=== PATIENT | female | born 1990 | race Caucasian/White ===

== ENCOUNTER 2021-11-16 11:45 | Emergency (ER) | payer OTHER ==
[2021-11-16 11:54] VITALS: BP 103/53
--- NOTE | 2021-11-16 13:03 | Emergency Department Report ---
ED General Adult HPI - General Chief complaint: Medical Clearance Stated complaint: 14WKS PREG NEED CHECK Source: patient Mode of arrival: Ambulatory Limitations: No Limitations - History of Present Illness Initial comments: 31-year-old female presents emergency department with concerns for her . Patient states she is about 14 weeks . She states her last menstrual period was in July. She denies any bleeding, loss of fluids or abdominal pain. She has had 1 previous . She denies history of ectopic or miscarriage. She states her previous resulted in a premature baby. - Related Data Allergies Allergy/AdvReac Type Severity Reaction Status Date / Time No Known Allergies Allergy Verified 11/16/21 11:51 ED Review of Systems ROS: Stated complaint: 14WKS PREG NEED CHECK Other details as noted in HPI Constitutional: no symptoms reported Eyes: denies: eye pain ENT: denies: throat pain Respiratory: denies: cough Cardiovascular: denies: orthopnea Endocrine: no symptoms reported Gastrointestinal: denies: abdominal pain, nausea, vomiting Genitourinary: denies: urgency, dysuria, discharge Musculoskeletal: denies: back pain, joint swelling, arthralgia Skin: denies: rash, lesions Neurological: denies: headache, weakness, paresthesias Psychiatric: denies: anxiety, depression Hematological/Lymphatic: denies: easy bleeding, easy bruising ED Physical Exam - General Limitations: No Limitations General appearance: alert, in no apparent distress - Head Head exam: Present: atraumatic, normocephalic - Eye Eye exam: Present: normal appearance - ENT ENT exam: Present: mucous membranes moist - Neck Neck exam: Present: normal inspection - Respiratory Respiratory exam: Absent: respiratory distress - Cardiovascular Cardiovascular Exam: Present: other (Well-perfused extremities) - GI/Abdominal GI/Abdominal exam: Present: soft, normal bowel sounds, other (gravid abdomen). Absent: tenderness - Rectal Rectal exam: Present: deferred - Extremities Exam Extremities exam: Present: normal inspection - Back Exam Back exam: Present: normal inspection - Neurological Exam Neurological exam: Present: alert, oriented X3 - Psychiatric Psychiatric exam: Present: normal affect, normal mood - Skin Skin exam: Present: warm, dry, intact, normal color. Absent: rash ED Course Vital Signs 11/16/21 11:51 Temperature 98.5 F Pulse Rate 86 Respiratory 16 Rate Blood Pressure 103/53 [Left] O2 Sat by Pulse 99 Oximetry - Reevaluation(s) Reevaluation #1: 11/16/21 13:16 Bedside ultrasound was completed which demonstrated a single intrauterine . There were positive cardiac activity. The fetus was also mov ing. ED Medical Decision Making - Medical Decision Making Patient is a 31-year-old female here with stating that she is approximately 14 weeks and would like to check on the baby. She has no complaints. Plan for a bedside ultrasound of her to further evaluate. Critical care attestation.: If time is entered above; I have spent that time in minutes in the direct care of this critically ill patient, excluding procedure time. ED Disposition Clinical Impression: IUP (intrauterine ), incidental Disposition: HOME / SELF CARE / HOMELESS Is pt being admited?: No Does the pt Need Aspirin: No Condition: Stable Instructions: Second Trimester of Referrals: BRANDON MALLORY MD [Staff Physician] - 3-5 Days Time of Disposition: 13:03 Print Language: BURKIN[place]
== END 2021-11-16 13:28 | disposition home or self-care (01) ==
LOC: ED 11:45
DX: O00.01 Abdominal pregnancy with intrauterine pregnancy (principal); Z3A.14 14 weeks gestation of pregnancy
CPT/HCPCS: 99282; 99283